=== PATIENT | female | born 1940 | race African-American/Black ===

== ENCOUNTER 2021-05-26 18:45 | Emergency (ER) | payer OTHER ==
[~2021-05-26] VITALS: Ht 162.6 cm; Wt 77.1 kg
[2021-05-26 21:04] VITALS: BP 185/64
== END 2021-05-26 21:00 | disposition home or self-care (01) ==
LOC: ER 18:45
DX: S00.83XA Contusion of other part of head, initial encounter (principal); S50.02XA Contusion of left elbow, initial encounter; M79.602 Pain in left arm; M54.2 Cervicalgia; M25.511 Pain in right shoulder; M25.562 Pain in left knee; M25.561 Pain in right knee; Z88.0 Allergy status to penicillin; W11.XXXA Fall on and from ladder, initial encounter; Y93.89 Activity, other specified; Y92.89 Other specified places as the place of occurrence of the external cause; Y99.8 Other external cause status